=== PATIENT | male | born 1940 | race Caucasian/White ===

== ENCOUNTER → 2018-09-05 | Outpatient (CLI) | payer OTHER | END | disposition home or self-care (01) | LOC: OIH 08:50 | PROVIDERS: ATTEND Family Medicine | DX: I13.0 Hypertensive heart and chronic kidney disease with heart failure and stage 1 through stage 4 chronic kidney disease, or unspecified chronic kidney disease (principal); I25.2 Old myocardial infarction; N18.9 Chronic kidney disease, unspecified; M47.895 Other spondylosis, thoracolumbar region | CPT/HCPCS: 71046 ==

== ENCOUNTER → 2018-10-09 | Outpatient (CLI) | payer OTHER ==
[~2018-10-09] MED LIST: REGADENOSON 0.4 MG/5 ML PF SYG IVP SCH
== END | disposition home or self-care (01) ==
LOC: SHCH 09:04
PROVIDERS: ATTEND Internal Medicine Cardiovascular Disease
DX: I25.119 Atherosclerotic heart disease of native coronary artery with unspecified angina pectoris (principal); R06.00 Dyspnea, unspecified
CPT/HCPCS: 78452; 93017; 96374; A9500 ×2; J2785

== ENCOUNTER → 2019-08-04 | Outpatient (CLI) | payer OTHER | END | disposition home or self-care (01) | LOC: RAH 10:55 | PROVIDERS: ATTEND Family Medicine | DX: I65.21 Occlusion and stenosis of right carotid artery (principal); I77.1 Stricture of artery | CPT/HCPCS: 93880 ==

== ENCOUNTER → 2023-10-14 | Outpatient (CLI) | payer OTHER ==
[2023-10-14 12:42] LABS: ALBUMIN 3.4 g/dL (3.5-5.0); BILIRUBIN,TOTAL 1.1 mg/dL (0.2-1.0); CREATININE 1.5 mg/dL (0.5-1.5); POTASSIUM 4.4 mmol/L (3.5-5.1); TOTAL PROTEIN, SERUM 7.9 g/dL (6.0-8.3)
== END | disposition home or self-care (01) ==
LOC: LAB 08:43
PROVIDERS: ATTEND Internal Medicine Cardiovascular Disease
DX: I25.10 Atherosclerotic heart disease of native coronary artery without angina pectoris (principal); E78.5 Hyperlipidemia, unspecified
CPT/HCPCS: 36415; 80053; 80061

== ENCOUNTER 2024-02-14 21:26 | Observation (INO) | payer OTHER ==
[~2024-02-14] VITALS: Ht 170.2 cm; Wt 151.0 kg
[2024-02-14 22:12] LABS: BASOPHILS # (AUTO) 0.03 K/uL (0.00-0.20); BASOPHILS % (AUTO) 0.3 % (0.0-5.0); EOSINOPHILS # (AUTO) 0.08 K/uL (0.00-0.70); EOSINOPHILS % (AUTO) 0.7 % (0.0-8.0); HEMATOCRIT 33.8 % (42-54); IMMATURE GRANULOCYTE ABSOLUTE 0.04 K/uL (0-1); LYMPHOCYTES # (AUTO) 1.1 K/uL (1.0-4.8); LYMPHOCYTES % (AUTO) 9.7 % (21.0-51.0); MEAN CORPUSCULAR HEMOGLOBIN 33.6 pg (27.0-33.0); MEAN CORPUSCULAR HGB CONC 33.7 g/dL (32.0-36.0); MEAN CORPUSCULAR VOLUME 99.7 fL (79-99); MONOCYTES % (AUTO) 8.7 % (3.0-13.0); NEUTROPHILS # (AUTO) 8.9 K/uL (1.8-7.7); NEUTROPHILS % (AUTO) 80.2 % (40.0-77.0); PLATELET COUNT (AUTO) 144 K/uL (130-400); RED BLOOD CELL COUNT(AUTO) 3.39 MIL/uL (4.50-6.20); RED CELL DISTRIBUTION WIDTH 13.2 % (11.0-15.5); WHITE BLOOD COUNT (AUTO) 11.1 K/uL (4.8-10.8)
[2024-02-14 22:18] LABS: APPEARANCE,URINE CLEAR (CLEAR); BILIRUBIN,URINE NEGATIVE (NEGATIVE); COLOR,URINE LIGHT-YELLOW (YELLOW); GLUCOSE, URINE (UA) NEGATIVE (NEGATIVE); KETONES,URINE NEGATIVE (NEGATIVE); LEUKOCYTE ESTERASE ,URINE NEGATIVE Leu/uL (NEGATIVE); NITRATE,URINE NEGATIVE (NEGATIVE); OCCULT BLOOD,URINE SMALL (NEGATIVE); PH,URINE 6.5 (5.0-8.0); PROTEIN,URINE 300 mg/dL (NEGATIVE); UROBILINOGEN,URINE 0.2 mg/dL (0.2-1.0)
[2024-02-14 22:21] LABS: CREATININE 1.6 mg/dL (0.5-1.3); POTASSIUM 3.6 mmol/L (3.5-5.1)
[2024-02-14 22:22] LABS: ADD UA MICROSCOPIC YES
[2024-02-14 22:24] LABS: BACTERIA,URINE RARE /HPF (None Seen); WBC,URINE 0-1 /HPF (0-1)
[2024-02-14 22:35] LABS: ALBUMIN 3.6 g/dL (3.5-5.0); BILIRUBIN,TOTAL 1.2 mg/dL (0.2-1.0); TOTAL PROTEIN, SERUM 8.5 g/dL (6.0-8.3)
[2024-02-14] MEDS: LACTATED RINGERS 1000ML 1,000 ML IV ONE (23:34)
[2024-02-14] MEDS ORDERED: IOHEXOL-350 75 ML VIAL IV ONE (23:49)
[2024-02-15] VITALS (28 sets, daily range): BP systolic 121–146; BP diastolic 58–91; PULSE 67–100; RESP 15–20; O2SAT 94–98
[2024-02-15] MEDS: ZOSYN 3.375GM +NS 50ML IV ONE (02:05)
[2024-02-15] MEDS: 0.9%NACL 1000ML 1,000 ML IV ONE (02:06)
[2024-02-15] MEDS ORDERED: MORPHINE 2 MG SYG IVP PRN (03:30)
[2024-02-15] MEDS ORDERED: HYDRALAZINE 20MG/ML VIAL IV PRN (03:30)
[2024-02-15] MEDS ORDERED: LACTULOSE 20 GM/30 ML UDCUP PO PRN (03:30)
[2024-02-15] MEDS ORDERED: OXYCODONE/ACETAMIN 5/325MG TAB PO PRN (03:30)
[2024-02-15] MEDS ORDERED: DiphenhydrAMINE HCL 50 MG/ML VIAL IV PRN (03:30)
[2024-02-15] MEDS ORDERED: NITROGLYCERIN 0.4 MG SL TAB SL PRN (03:30)
[2024-02-15] MEDS ORDERED: GUAIFENESIN-DM 200/20 MG 10 ML PO PRN (03:30)
[2024-02-15] MEDS ORDERED: ACETAMINOPHEN 325 MG TAB PO PRN ×3 (03:30)
[2024-02-15] MEDS ORDERED: MAG/ALUM/SIMETH 30 ML UDCUP PO PRN (03:30)
[2024-02-15] MEDS ORDERED: ZOLPIDEM TARTRATE 5 MG TAB PO PRN (03:30)
[2024-02-15] MEDS ORDERED: ONDANSETRON 4MG INJ IV PRN (03:30)
[2024-02-15] MEDS: LACTATED RINGERS 1000ML 1,000 ML IV SCH (05:24)
[2024-02-15] MEDS: PANTOPRAZOLE 40 MG/VIAL ONE (05:25)
[2024-02-15] MEDS: ZOSYN 3.375GM+NS 50ML 50 ML IV SCH (05:44)
[2024-02-15] MEDS: INSULIN HUMULIN R 100 UNIT/ML 3ML SQ SCH (05:45)
[2024-02-15] MEDS: PANTOPRAZOLE 40MG INJ 80 MG in 0.9%NACL 100ML 100 ML IV SCH (06:38)
[2024-02-15 06:51] LABS: BASOPHILS # (AUTO) 0.02 K/uL (0.00-0.20); BASOPHILS % (AUTO) 0.2 % (0.0-5.0); EOSINOPHILS # (AUTO) 0.07 K/uL (0.00-0.70); EOSINOPHILS % (AUTO) 0.7 % (0.0-8.0); HEMATOCRIT 31.3 % (42-54); IMMATURE GRANULOCYTE ABSOLUTE 0.02 K/uL (0-1); LYMPHOCYTES % (AUTO) 10.5 % (21.0-51.0); MEAN CORPUSCULAR HGB CONC 32.9 g/dL (32.0-36.0); MEAN CORPUSCULAR VOLUME 103.3 fL (79-99); NEUTROPHILS # (AUTO) 7.3 K/uL (1.8-7.7); NEUTROPHILS % (AUTO) 77.4 % (40.0-77.0); PLATELET COUNT (AUTO) 122 K/uL (130-400); RED BLOOD CELL COUNT(AUTO) 3.03 MIL/uL (4.50-6.20); RED CELL DISTRIBUTION WIDTH 13.2 % (11.0-15.5); WHITE BLOOD COUNT (AUTO) 9.5 K/uL (4.8-10.8)
[2024-02-15 07:06] LABS: PROTHROMBIN TIME 11.8 SEC (9.6-11.6)
[2024-02-15 07:08] LABS: PARTIAL THROMBOPLASTIN TIME 31.9 SEC (26.3-35.5)
[2024-02-15 07:12] LABS: AMMONIA < 10 umol/L (11-32)
[2024-02-15 07:35] LABS: % IRON SATURATION 10.5 % (30-44)
[2024-02-15 07:39] LABS: HEMOGLOBIN A1C 6.5 % (4.0-6.0)
[2024-02-15 07:43] LABS: B-TYPE NATRIURETIC PEPTIDE 1260 pg/mL (0-100)
[2024-02-15 07:44] LABS: ALANINE AMINOTRANSFERASE 22 U/L (12-78); ASPARTATE AMINOTRANSFERASE 22 U/L (10-37); BILIRUBIN,TOTAL 1.2 mg/dL (0.2-1.0); CARBON DIOXIDE 26 mmol/L (21-32); CHLORIDE 106 mmol/L (101-111); CREATINE KINASE, TOTAL 45 U/L (21-232); CREATININE 1.5 mg/dL (0.5-1.3); GLOMERULAR FILTR. RATE CALC 46 mL/min (>90); GLUCOSE,RANDOM 124 mg/dL (70-105); POTASSIUM 3.7 mmol/L (3.5-5.1); SODIUM SERUM 142 mmol/L (136-145); THYROID STIMULATING HORMONE 1.41 uIU/mL (0.36-3.74); TOTAL PROTEIN, SERUM 7.3 g/dL (6.0-8.3); UREA NITROGEN, BLOOD 22 mg/dL (7-18)
[2024-02-15] MEDS ORDERED: LACTULOSE 20 GM/30 ML UDCUP PO ONE (10:00)
[2024-02-15] MEDS ORDERED: PEG 3350/NA SULF,BICARB,CL/KCL 4000 ML SOLN PO ONE (10:00)
[2024-02-15] MEDS: FUROSEMIDE 40MG VIAL IV ONE (11:29)
[2024-02-15] MEDS ORDERED: LIDOCAINE PF 100MG/5ML (2%) SYRINGE 5ML ONE (16:49)
[2024-02-15] MEDS ORDERED: MIDAZOLAM HCL 1 MG/ML 2ML VIAL ONE (16:50)
[2024-02-15] MEDS ORDERED: ROCURONIUM BROMIDE 10MG/1ML 5ML VL ONE (16:50)
[2024-02-15] MEDS ORDERED: FENTANYL CITRATE PF 50 MCG/1 ML 2ML VIAL ONE (16:50)
[2024-02-15] MEDS ORDERED: PROPOFOL 10 MG/ML 20ML VIAL IV ONE (16:50)
[2024-02-15] MEDS ORDERED: SUCCINYLCHOLINE CHLORIDE 20 MG/ML 10 ML VIAL ONE (16:50)
[2024-02-15] MEDS ORDERED: BUPIVACAINE/PF 0.5% 30ML VIAL ONE (17:04)
[2024-02-15] MEDS: BUPIVACAINE/PF 0.5% 30ML VIAL INJ ONE (17:04)
[2024-02-15] MEDS ORDERED: NEOSTIGMINE METHYLSULFATE 1MG/ML IV ONE (17:23)
[2024-02-15] MEDS ORDERED: GLYCOPYRROLATE 0.2 MG/ML 5 ML VIAL ONE (17:23)
[2024-02-15] MEDS ORDERED: LOSA50TA64 PO (17:35)
[2024-02-15] MEDS ORDERED: BICA50TA7 PO (17:35)
[2024-02-15] MEDS ORDERED: CARV25TA PO (17:35)
[2024-02-15] MEDS ORDERED: ASPI-1197 PO (17:35)
[2024-02-15] MEDS ORDERED: CLON0.2T PO (17:35)
[2024-02-15] MEDS ORDERED: AMLO-257 PO (17:35)
[2024-02-15] MEDS ORDERED: ROSU20TA73 PO (17:35)
[2024-02-15] MEDS ORDERED: TIZA-194 PO (17:35)
[2024-02-15] MEDS ORDERED: FURO40TA5 PO (17:35)
[2024-02-15] MEDS ORDERED: ERGO500093 PO (17:35)
[2024-02-15] MEDS: MEPERIDINE-PF 25 MG/ML SYG ONE (17:46)
[2024-02-15] MEDS: KETOROLAC 15MG/ML VIAL (15MG/ML) IV PRN (19:25)
[2024-02-15] MEDS: PANTOPRAZOLE 40 MG/VIAL IVP SCH (20:10)
[2024-02-15] MEDS: FUROSEMIDE 20MG VIAL IV SCH (20:11)
[2024-02-15] MEDS: ATORVASTATIN 20 MG TABLET PO SCH (20:11)
[2024-02-16 00:15] VITALS: BP 148/84; PULSE 95
[2024-02-16 03:00] VITALS: BP 122/67; PULSE 74; RESP 18
[2024-02-16 06:30] LABS: BASOPHILS # (AUTO) 0.02 K/uL (0.00-0.20); BASOPHILS % (AUTO) 0.2 % (0.0-5.0); HEMATOCRIT 29.8 % (42-54); IMMATURE GRANULOCYTE ABSOLUTE 0.04 K/uL (0-1); LYMPHOCYTES # (AUTO) 0.7 K/uL (1.0-4.8); LYMPHOCYTES % (AUTO) 7.6 % (21.0-51.0); MEAN CORPUSCULAR HEMOGLOBIN 33.9 pg (27.0-33.0); MEAN CORPUSCULAR HGB CONC 33.6 g/dL (32.0-36.0); MONOCYTES # (AUTO) 0.8 K/uL (0.1-1.0); MONOCYTES % (AUTO) 8.8 % (3.0-13.0); NEUTROPHILS # (AUTO) 7.7 K/uL (1.8-7.7); PLATELET COUNT (AUTO) 142 K/uL (130-400); RED BLOOD CELL COUNT(AUTO) 2.95 MIL/uL (4.50-6.20); RED CELL DISTRIBUTION WIDTH 13.2 % (11.0-15.5); WHITE BLOOD COUNT (AUTO) 9.2 K/uL (4.8-10.8)
[2024-02-16 06:49] LABS: CREATININE 1.8 mg/dL (0.5-1.3); MAGNESIUM 1.5 mg/dL (1.80-2.40); POTASSIUM 3.3 mmol/L (3.5-5.1)
[2024-02-16 06:55] LABS: B-TYPE NATRIURETIC PEPTIDE 778 pg/mL (0-100)
[2024-02-16 08:00] VITALS: BP 134/80; PULSE 92; RESP 18
[2024-02-16 08:15] VITALS: O2SAT 93
[2024-02-16] MEDS: MAGNESIUM 2GM PREMIX 50ML 50 ML IV PRN (08:15)
[2024-02-16] MEDS ORDERED: MAGNESIUM 2GM PREMIX 50ML 50 ML IV PRN (08:30)
[2024-02-16] MEDS ORDERED: POTASSIUM CHLORIDE 20MEQ/100ML 100 ML IV PRN (08:30)
[2024-02-16] MEDS ORDERED: POTASSIUM CHLORIDE 10% ELIXIR 20 MEQ/15 ML UDCUP PO PRN (08:30)
[2024-02-16] MEDS ORDERED: TIZANIDINE HCL 2 MG TABLET PO PRN (09:00)
[2024-02-16] MEDS: BICALUTAMIDE 50 MG TABLET PO SCH (09:00)
[2024-02-16] MEDS: LOSARTAN 50 MG TABLET PO SCH (09:51)
[2024-02-16] MEDS: CARVEDILOL 25 MG TABLET PO SCH (09:51)
[2024-02-16] MEDS: ASPIRIN 81MG CHEW TAB PO SCH (09:51)
[2024-02-16] MEDS ORDERED: AMOX1TAB16 PO (11:14)
[2024-02-16] MEDS: KCL 20 MEQ ERTAB PO PRN (11:46)
[2024-02-16 12:00] VITALS: BP 115/50; PULSE 71; RESP 20
[2024-02-16] MEDS ORDERED: ATORVASTATIN 40 MG TABLET PO SCH (21:00)
[2024-02-16] MEDS ORDERED: AMLODIPINE 5 MG TAB PO SCH (21:00)
[2024-02-16] MEDS ORDERED: NON-FORMULARY MEDICATION 1 EACH (Rosuvastatin Calcium 20 MG) PO SCH (21:00)
== END 2024-02-16 13:40 | disposition home or self-care (01) ==
LOC: EDH 21:26 → INTOOBSV 02-15 03:13 → EDHIP 02-15 03:13 → 3DH 02-15 04:15
PROVIDERS: ADMIT Hospitalist; ATTEND Hospitalist
DX: K35.891 Other acute appendicitis without perforation, with gangrene (principal); K92.2 Gastrointestinal hemorrhage, unspecified; I13.0 Hypertensive heart and chronic kidney disease with heart failure and stage 1 through stage 4 chronic kidney disease, or unspecified chronic kidney disease; E11.22 Type 2 diabetes mellitus with diabetic chronic kidney disease; N18.9 Chronic kidney disease, unspecified; I50.9 Heart failure, unspecified; G47.33 Obstructive sleep apnea (adult) (pediatric); K21.9 Gastro-esophageal reflux disease without esophagitis; E78.5 Hyperlipidemia, unspecified; R60.0 Localized edema; N17.9 Acute kidney failure, unspecified; I70.90 Unspecified atherosclerosis; D64.9 Anemia, unspecified; K66.0 Peritoneal adhesions (postprocedural) (postinfection); Z85.828 Personal history of other malignant neoplasm of skin; Z88.1 Allergy status to other antibiotic agents; Z86.2 Personal history of diseases of the blood and blood-forming organs and certain disorders involving the immune mechanism; Z79.899 Other long term (current) drug therapy
CPT/HCPCS: 80053 ×2; 83690; 85025 ×3; 82270; 81001; 36415 ×3; 74177; 44970; 96376 ×2; 96365; 96366 ×2; 96375; 96368; 99285; 83036; 84443; 83540; 83550; 82550; 83735 ×2; 84484; 83880 ×2; 82140; 85378; 85610; 85730; 87040 ×2; 82948 ×5; 83605; 82746; 88304; 71045; 78582; 93306; 93356; 93970; 84145; 96372; 80048; Q9967; J7030; J0330; J3490 ×2; J2001; J2250; J2704; J2710; J2543 ×5; J1940 ×3; J0665 ×2; C9113 ×3; J2175; J1885; A9540; A9558; C1769 ×3; A4649 ×2; A4930; G0378 ×2; J3475; 96361; J3010

== ENCOUNTER → 2024-04-03 | Outpatient (CLI) | payer OTHER ==
[~2024-04-03] MED LIST changes: +AMLO-257 PO; +AMOX1TAB16 PO; +ASPI-1197 PO; +BICA50TA7 PO; +CARV25TA PO; +CLON0.2T PO; +ERGO500093 PO; +FURO40TA5 PO; +LOSA50TA64 PO; -REGADENOSON 0.4 MG/5 ML PF SYG IVP SCH; +ROSU20TA73 PO; +TIZA-194 PO
[2024-04-03 21:33] VITALS: PULSE 56; RESP 18
[2024-04-03 22:00] VITALS: PULSE 58
[2024-04-03 22:30] VITALS: PULSE 60
== END | disposition home or self-care (01) ==
LOC: SLP 19:56
PROVIDERS: ATTEND Internal Medicine Cardiovascular Disease
DX: G47.33 Obstructive sleep apnea (adult) (pediatric) (principal)
CPT/HCPCS: 95811